=== PATIENT | male | born 1985 | race American Indian/Alaskan Native ===

== ENCOUNTER 2021-08-11 23:38 | Emergency (ER) | payer OTHER ==
[2021-08-12 00:01] VITALS: BP 126/78
--- NOTE | 2021-08-12 03:29 | Emergency Department Report ---
ED Rash HPI - HPI Chief Complaint: Skin Rash Stated Complaint: RASH ON GROIN/BODY ACHES Time Seen by Provider: 08/12/21 03:19 Duration: 1 wk ago Location: Other (genitalia) Suspected Cause: Unknown Rash Symptoms: Yes Itching, No Facial Swelling, No Tongue/Oral Swelling, No Breathing Difficulties, No Choking Sensation, No Wheezing/Dyspnea, No Peeling, No Blistering, No Fever, No Lightheaded, No Malaise, No Myalgias Severity: mild Other History: 36-year-old male presents to the ER today with complaints of a rash to his scrotal area. Patient states that the rash started 1 week ago. He described as a pruritic rash. He denies any pain. He denies any testicular pain or swelling. He denies any penile discharge or dysuria. Patient states that he is concerned that this rash could be related to his syphilis rash. He does report one new sexual partner but they have not reported any symptoms to him. ED Review of Systems ROS: Stated complaint: RASH ON GROIN/BODY ACHES Other details as noted in HPI Comment: All other systems reviewed and negative Constitutional: denies: chills, diaphoresis, fever, malaise, weakness Eyes: denies: eye pain, eye discharge, vision change ENT: denies: ear pain, throat pain Respiratory: denies: cough, shortness of breath, SOB with exertion, SOB at rest, wheezing Cardiovascular: denies: chest pain, palpitations, edema, syncope, paroxysmal nocturnal dyspnea Gastrointestinal: denies: abdominal pain, nausea, diarrhea, constipation, hematemesis, melena Genitourinary: denies: urgency, dysuria, frequency, hematuria, discharge, testicular pain, testicular mass Skin: rash, pruritus Neurological: denies: headache, weakness, numbness, paresthesias, confusion, abnormal gait, vertigo Psychiatric: denies: anxiety, depression, auditory hallucinations, visual hallucinations, homicidal thoughts, suicidal thoughts Hematological/Lymphatic: denies: easy bleeding, easy bruising, swollen glands ED Past Medical Hx - Social History Smoking Status: Never Smoker - Medications Home Medications: Home Medications Medication Instructions Recorded Confirmed Last Taken Type 0.9 % Sodium Chloride [Nasal Mist] 126 ml NS BID #1 spray 11/24/15 Unknown Rx Amoxicillin/K Clav Tab [Augmentin 1 tab PO Q12HR #20 tab 11/24/15 Unknown Rx 875 mg] Cetirizine HCl [ZyrTEC] 10 mg PO DAILY #30 capsule 11/24/15 Unknown Rx Ibuprofen [Motrin 800 MG tab] 800 mg PO Q8HR PRN #30 tablet 11/24/15 Unknown Rx Clotrimazole 1% [Lotrimin 1%] 1 applic TP BID 14 Days #2 tube 08/12/21 Unknown Rx Rash Exam - Exam General: Vital signs noted. No distress. Alert and acting appropriately. HEENT: No Periorbital Edema, No Conjuctival Injection, No Chemosis, No Perioral Edema, No Tongue Edema, No Uvular Edema, No Compromised Airway, No Drooling Lungs: Yes Good Air Exchange, No Wheezes, No Ronchi, No Stridor, No Cough, No Labored Respirations, No Retractions, No Use of Accessory Muscles, No Other Abnormal Lung Sounds Heart: Yes Regular, No Murmur Skin: Yes Maculopapular Rash (Mild, hyperpigmented, maculopapular slightly dry rash noted to the scrotal sac mainly on the left side and mildly in the groin areas.) Other: Positive: Abdomen Normal, Neurologic Normal, Musculoskeletal Normal ED Course Vital Signs 08/11/21 23:49 Temperature 98.4 F Pulse Rate 75 Respiratory 16 Rate Blood Pressure 126/78 O2 Sat by Pulse 98 Oximetry ED Medical Decision Making - Radiology Data Patient rash more concerning for a tinea curious. He does not have any shallow ulcerated areas or any other lesion or any other notable rash on exam. He has no testicular pain or swelling. No penile discharge. Informed patient that this time the rash does not seem to be consistent with a syphilis rash. But patient states that he had syphilis once in the past stating that he remembers having a similar rash. Informed patient that he will need to follow-up with local urgent care or health department for syphilis testing but in the meantime we will give him clotrimazole cream to apply twice a day. Patient expressed understanding and agree with plan. Patient stable at time of discharge. Critical care attestation.: If time is entered above; I have spent that time in minutes in the direct care of this critically ill patient, excluding procedure time. ED Disposition Clinical Impression: Rash of genital area, Tinea cruris Disposition: HOME / SELF CARE / HOMELESS Is pt being admited?: No Does the pt Need Aspirin: No Condition: Stable Instructions: Jock Itch, [id number], Preventing Sexually Transmitted Infections, Adult Additional Instructions: I recommend that you follow-up with local urgent care, or the health department for syphilis and other STD testing. In the meantime I do recommend that you use the clotrimazole cream and use as prescribed. Return to the ER if your symptoms changes or worsens in any way. Prescriptions: Clotrimazole 1% [Lotrimin 1%] 1 applic TP BID 14 Days #2 tube Referrals: MIR OWENS MD [Staff Physician] - 3-5 Days Time of Disposition: 03:29
== END 2021-08-12 03:57 | disposition home or self-care (01) ==
LOC: ED 23:38
DX: B35.6 Tinea cruris (principal); N49.9 Inflammatory disorder of unspecified male genital organ; Z79.899 Other long term (current) drug therapy
CPT/HCPCS: 99282